=== PATIENT | female | born 1980 | race Caucasian/White ===

== ENCOUNTER 2017-10-21 09:13 | Emergency (ER) | payer OTHER, SELFPAY ==
[2017-10-21 10:00] VITALS: BP 181/77; PULSE 70; RESP 20; TEMP 37; O2SAT 98; BMI 21.4
[2017-10-21 10:17] LABS: UTC Influenza A Antigen Negative (Negative); UTC Influenza B Antigen Negative (Negative)
--- NOTE | 2017-10-21 10:27 | HMH.EDUTC ---
[facility] [place]ression: Tobacco abuse Acute bronchitis Qualifiers: Bronchitis organism: unspecified organism Qualified Code(s): J20.9 - Acute bronchitis, unspecified Disposition: Home, Self-Care Condition on Discharge: Good Instructions: DI for Acute Bronchitis, How to Quit Tobacco Products Additional Instructions: * STOP SMOKING!!!! * start antibiotic today. Be sure to complete entire prescription even if feeling better. As we discussed, without a chest xray I can not rule out that this is not pneumonia or something else. I understand you do not want one and will follow up for new or worsening symptoms. * Monitor Temp. Follow up immediately if fever develops. * humidifier/vaporizer/hot steamy shower * Inhaler every 4-6 hours as needed like we discussed. If unsure how to use it, ask pharmacist to demonstrate how. Should help open airways and improve cough, wheezing, shortness of breath. * Mucinex during the day for your cough and cough suppressant only at night. Be sure to drink lots of water. Insurance may not cover a prescription of mucinex. Might be cheaper to get 400mg tablets and take 2 tablets morning, midday and evening all with lots of water. * Promethazine DM cough syrup will cause drowsiness. Use it only at night. No driving, operating machinery or caring for small children after taking it. * Start steroid today. Helps with inflammation therefore, cough and wheezing. Follow directions on package. Rvwd side effects. Pt reports they have taken them before. Follow up IMMEDIATELY for new or worsening symptoms OR no noticeable improvement over the next 48-72 hours. 911 for difficulty breathing. Prescriptions: Albuterol Sulfate [Albuterol HFA Inhaler] 1 - 2 puffs IH Q4-6H PRN #1 inh PRN Reason: Shortness Of Breath Or Wheezing Azithromycin [Z-Rashard 250mg Tab] 250 mg PO UD DOSE PK #6 tab predniSONE [Prednisone 20mg Tab] 20 mg PO BID #10 tab Promethazine/Dextromethorphan [Promethazine-Dm Syrup] 5 - 10 ml PO HS PRN #120 ml PRN Reason: Cough Referrals: Rose Riggins [Primary Care Provider] - (IMMEDIATELY for new or worsening symptoms OR no noticeable improvement over the next 48-72 hours. 911 for difficulty breathing.) Time of Disposition: 10:53 Medical Decision Making Vital Signs: 10/21/17 10:00 Temperature 98.6 F Temperature Source Temporal Artery Scan Pulse Rate [Brachial] 70 Respiratory Rate 20 Blood Pressure [Right Arm] 181/77 Blood Pressure Mean [Right Arm] 111 Blood Pressure Source [Right Arm] Automatic Cuff Blood Pressure Position [Right Arm] Sitting 02 Sat by Pulse Oximetry 98 Oxygen Delivery Method Room Air - Lab Data Lab results reviewed: Yes: I reviewed the patient's lab results. Lab Results 10/21/17 10:05: Influenza Type A Ag Negative, Influenza Type B Ag Negative - Sae Inquiry Pt receiving controlled substance: No - Reevaluation(s) Time: 10:40 Reevaluation #1: Suggested CXR to r/o pneumonia, pneumo, etc. Pt refusing. Aware of risk if remains undiagnosed. Wants medication only and if no improvement would agree to xray at that time. [facility] [place] Stated complaint: itchy runny eyes nose soa cough Time Seen by Provider: 10/21/17 10:27 Mode of Arrival: Ambulatory Source of Information: Patient Limitations: No Limitations Description of Symptoms (Recalled from Triage Doc. by RN): 2 DAYS OF BODY ACHES, LOW GRADE FEVER, COUGH AND CONGESTION AND FEELS SOA AT TIMES. HEENT Symptoms (Recalled from RN notes): Yes Resp Symptoms (Recalled from RN notes): Yes Skin Symptoms (Recalled from RN notes): No MS Symptoms (Recalled from RN notes): No Functional Status (Recalled from RN notes): NA - History of Present Illness Provider Complaint: c/o cough and SOA. Started last Saturday, 6 days ago. Had been exposed to flu. Started w/ allergy symptoms (watery eyes, sneezing, runny nose). Cough started 2-3 days later. Nonproductive. I can feel stuff in my
--- NOTE | 2017-10-21 10:46 | ED_ITS ---
[facility] [place] Clinical Impression: Tobacco abuse Acute bronchitis Qualifiers: Bronchitis organism: unspecified organism Qualified Code(s): J20.9 - Acute bronchitis, unspecified Disposition: Home, Self-Care Condition on Discharge: Good Instructions: DI for Acute Bronchitis, How to Quit Tobacco Products Additional Instructions: * STOP SMOKING!!!! * start antibiotic today. Be sure to complete entire prescription even if feeling better. As we discussed, without a chest xray I can not rule out that this is not pneumonia or something else. I understand you do not want one and will follow up for new or worsening symptoms. * Monitor Temp. Follow up immediately if fever develops. * humidifier/vaporizer/hot steamy shower * Inhaler every 4-6 hours as needed like we discussed. If unsure how to use it, ask pharmacist to demonstrate how. Should help open airways and improve cough, wheezing, shortness of breath. * Mucinex during the day for your cough and cough suppressant only at night. Be sure to drink lots of water. Insurance may not cover a prescription of mucinex. Might be cheaper to get 400mg tablets and take 2 tablets morning, midday and evening all with lots of water. * Promethazine DM cough syrup will cause drowsiness. Use it only at night. No driving, operating machinery or caring for small children after taking it. * Start steroid today. Helps with inflammation therefore, cough and wheezing. Follow directions on package. Rvwd side effects. Pt reports they have taken them before. Follow up IMMEDIATELY for new or worsening symptoms OR no noticeable improvement over the next 48-72 hours. 911 for difficulty breathing. Prescriptions: Albuterol Sulfate [Albuterol HFA Inhaler] 1 - 2 puffs IH Q4-6H PRN #1 inh PRN Reason: Shortness Of Breath Or Wheezing Azithromycin [Z-Rashard 250mg Tab] 250 mg PO UD DOSE PK #6 tab predniSONE [Prednisone 20mg Tab] 20 mg PO BID #10 tab Promethazine/Dextromethorphan [Promethazine-Dm Syrup] 5 - 10 ml PO HS PRN #120 ml PRN Reason: Cough Referrals: Rose Riggins [Primary Care Provider] - (IMMEDIATELY for new or worsening symptoms OR no noticeable improvement over the next 48-72 hours. 911 for difficulty breathing.) Time of Disposition: 10:53 Medical Decision Making Vital Signs: 10/21/17 10:00 Temperature 98.6 F Temperature Source Temporal Artery Scan Pulse Rate [Brachial] 70 Respiratory Rate 20 Blood Pressure [Right Arm] 181/77 Blood Pressure Mean [Right Arm] 111 Blood Pressure Source [Right Arm] Automatic Cuff Blood Pressure Position [Right Arm] Sitting 02 Sat by Pulse Oximetry 98 Oxygen Delivery Method Room Air - Lab Data Lab results reviewed: Yes: I reviewed the patient's lab results. Lab Results 10/21/17 10:05: Influenza Type A Ag Negative, Influenza Type B Ag Negative - Sae Inquiry Pt receiving controlled substance: No - Reevaluation(s) Time: 10:40 Reevaluation #1: Suggested CXR to r/o pneumonia, pneumo, etc. Pt refusing. Aware of risk if remains undiagnosed. Wants medication only and if no improvement would agree to xray at that time. [facility] [place] General Stated complaint: itchy runny eyes nose soa cough Time Seen by Provider: 10/21/17 10:27 Mode of Arrival: Ambulatory Source of Information: Patient Limitations: No Limitations Description of Symptoms (Recalled from Triage Doc. by RN): 2 DAYS OF BODY ACHES , LOW GRADE FEVER, COUGH AND CONGESTION AND FEELS SOA AT TIMES. [facility]
== END 2017-10-21 10:56 | disposition home or self-care (01) ==
PROVIDERS: Emergency Provider Nurse Practitioner Family; Family Provider Pediatrics; PCP Family Medicine
DX: J20.9 Acute bronchitis, unspecified (principal); F17.210 Nicotine dependence, cigarettes, uncomplicated
CPT/HCPCS: 87804; 99202

== ENCOUNTER → 2018-03-25 12:07 | Outpatient (CLI) | payer OTHER, SELFPAY ==
[2018-03-25 12:44] LABS: Basophils % 0.6 % (0.1-2.0); Eosinophils # 0.2 K/mm3 (0.0-0.4); Eosinophils % 2.6 % (0.1-12.0); Hematocrit 41.1 % (37.0-47.0); Hemoglobin 13.3 g/dL (12.2-16.2); Lymphocytes # 1.9 K/mm3 (0.7-4.5); Lymphocytes % 32.4 K/mm3 (10-50); Mean Corpuscular HGB Conc 32.3 g/dL (31.8-35.4); Mean Corpuscular Hemoglobin 29.8 pg (27.0-31.2); Mean Corpuscular Volume 92.3 fl (81-99); Mean Platelet Volume 7.4 fl (7.4-10.4); Monocytes # 0.3 K/mm3 (0.1-1.0); Monocytes % 4.6 % (1.7-9.3); Neutrophils # 3.5 K/mm3 (1.8-7.8); Neutrophils % 59.7 % (37.0-80.0); Platelet Count 315 K/mm3 (142-424); Red Blood Count 4.45 M/mm3 (4.20-5.40); Red Cell Distribution Width 12.8 % (11.5-17.5); White Blood Count 5.8 K/mm3 (4.8-10.8)
[2018-03-25 13:44] LABS: Alanine Aminotransferase 20 U/L (12-78); Albumin Level 3.9 gm/dL (3.4-5.0); Albumin/Globulin Ratio 1.1 (1.1-1.8); Alkaline Phosphatase 93 U/L (46-116); Aspartate Amino Transferase 17 U/L (15-37); Bilirubin,Total 0.3 mg/dL (0.2-1.0); Blood Urea Nitrogen 12 mg/dL (7-18); Carbon Dioxide 25 mmol/L (21.0-32.0); Chloride 105 mmol/L (98-107); Creatinine,Serum 0.67 mg/dL (0.55-1.02); Estimated Glomerular Filt Rate 99 ml/min (>60); GFR (African American) 119 ML/MIN (>60); Globulin 3.4 gm/dl (1.3-3.2); Glucose 94 mg/dL (74-106); Sodium 141 mmol/L (136-145); Total Protein,Serum 7.3 gm/dL (6.4-8.2)
== END ==
PROVIDERS: Visit Provider Obstetrics & Gynecology
DX: R63.4 Abnormal weight loss (principal)
CPT/HCPCS: 36415; 80053; 85025

== ENCOUNTER → 2018-04-23 09:44 | Outpatient (CLI) | payer OTHER, SELFPAY ==
--- NOTE | 2018-04-23 09:45 | CT_ITS ---
CT abdomen pelvis w con INDICATION: Cervical cancer history. Follow-up. ITS.REASON: personal hx. of cervical ca., weight loss ORDERING PHYSICIAN: Bryn Mensah MD PATIENT AGE: 37 years COMPARISON: 07/27/2016 CT of abdomen. Also January 2016 CT abdomen. PROCEDURE: Oral Contrast: None utilized IV Contrast: 75 cc [id number] TECHNIQUE: Axial images are obtained without contrast. Sagittal and coronal reformatted images are reviewed as well. All CT scans at the facility use one or more dose reduction, viz: automated exposure control; ma/kV adjustment per patient size (including targeted exams where dose is matched to indication; i.e. head); or iterative reconstruction technique. FINDINGS: Lung bases are clear. No active disease Abdomen. Liver. No focal lesions. No biliary ductal dilatation. Portal vein appears normal No abnormal areas of enhancement on portal venous phase imaging. Spleen is unremarkable. Pancreas is generous size throughout. Similar appearance was seen previously and not slightly more evident today. No focal mass or lesion. pancreatic duct appears upper normal as well seen throughout You may consider checking amylase and lipase with maximum length just verify as normal.. No inflammatory changes in adjacent fat about pancreas. Further inspection in this region I, also note some slight hazy appearance in the omentum just inferior to the stomach, more evident than previous study. Axial image 51-55. Requires correlation. May reflect early edematous changes in this region likely involving omentum & & just medial gallbladder. This is a subtle change since previous studies Kidneys. Normal enhancement. No obstruction. No lesions. A few scattered retroperitoneal nodes appears stable small not of concern no significant change. Postsurgical changes and clips are seen along the IVC leading to the right pelvis. Hysterectomy noted. No new adnexal findings or pelvic findings. Moderate/generous stool is seen throughout the colon Appendix is normal. Gallbladder unremarkable. No small bowel dilatation. No mesenteric adenopathy Osseous. No significant new findings. No osseous lesions Degenerative disc changes L4/5 IMPRESSION Hysterectomy for cervical cancer.. . A no significant new pelvic findings. No pelvic nor retroperitoneal adenopathy. Note very subtle hazy appearance inferior to the stomach , likely involving omentum Very subtle feature but is a subtle change since prior studies.. ( Gallbladder is just medial to this area but appears normal & stable on CT.-No evidence of inflammation. Might consider RUQ ultrasound) Pancreas is generous size throughout. Upper normal. Upper normal pancreatic duct is well Suggest checking amylase & lipase with next laboratory given the combination above features
== END ==
PROVIDERS: Family Provider Pediatrics; PCP Pediatrics; Visit Provider Obstetrics & Gynecology
DX: Z85.41 Personal history of malignant neoplasm of cervix uteri (principal); R63.4 Abnormal weight loss
CPT/HCPCS: 74177; Q9967

== ENCOUNTER 2024-12-19 15:17 | Emergency (ER) | payer OTHER, SELFPAY ==
[2024-12-19] VITALS (7 sets, daily range): BP systolic 122–136; BP diastolic 73–90; PULSE 96–123; RESP 16–36; TEMP 36.5–36.6; O2SAT 92–98; BMI 26.6
--- NOTE | 2024-12-19 15:26 | ECG_ITS ---
APPROVED REPORT Exam: Resting ECG HR:120 bpm ECG Measurements Heart Rate 120 AXES NE 108 P 52 QRSd 86 QRS 78 QT 315 T 64 QTc 386 Conclusion SINUS TACHYCARDIA WITH SHORT NE INTERVAL No STEMI Electronically signed by : TATE DUBOIS, 12/20/2024 00:55:11
[2024-12-19 15:34] LABS: Basophils % 0.2 % (0.1-2.0); Eosinophils # 0.1 K/mm3 (0.0-0.4); Eosinophils % 0.7 % (0.1-12.0); Hematocrit 36.7 % (37.0-47.0); Hemoglobin 13.1 g/dL (12.2-16.2); Lymphocytes # 2.1 K/mm3 (0.7-4.5); Lymphocytes % 19.1 % (10-50); Mean Corpuscular HGB Conc 35.7 g/dL (31.8-35.4); Mean Platelet Volume 8.9 fl (7.4-10.4); Monocytes # 0.7 K/mm3 (0.1-1.0); Monocytes % 6.1 % (1.7-9.3); Neutrophils # 7.9 K/mm3 (1.8-7.8); Neutrophils % 73.2 % (37.0-80.0); Platelet Count 488 K/mm3 (142-424); Red Blood Count 4.22 M/mm3 (4.20-5.40); Red Cell Distribution Width 12.1 % (11.5-17.5); White Blood Count 10.7 K/mm3 (4.8-10.8)
[2024-12-19 15:46] LABS: Alanine Aminotransferase 32 U/L (12-78); Albumin Level 4.2 g/dl (3.5-5.0); Albumin/Globulin Ratio 1.1 (1.1-1.8); Alkaline Phosphatase 116 U/L (38-126); Anion Gap 15.4 mEq/L (5-15); Aspartate Amino Transferase 40 U/L (14-36); Bilirubin,Total 0.6 mg/dl (0.2-1.3); Blood Urea Nitrogen 7 mg/dl (7-17); Calcium 9.2 mg/dl (8.4-10.2); Carbon Dioxide 22 mmol/L (22.0-30.0); Chloride 103 mmol/L (98-107); Creatinine Clearance Estimated 153 mL/min (50-200); Estimated Glomerular Filt Rate 108 ml/min (>60); GFR (African American) 131 ML/MIN (>60); Globulin 3.7 g/dL (1.3-3.2); Glucose 114 mg/dl (74-100); Lipase 60 U/L (23-300); Potassium 3.4 mmoL/L (3.5-5.1); Sodium 137 mmol/L (136-145); Total Protein,Serum 7.9 g/dl (6.3-8.2)
[2024-12-19] MEDS: ACETAMINOPHEN 1,000MG/100ML VIAL 1000 MG IV (15:48)
[2024-12-19] MEDS: KETOROLAC 30MG/ML VIAL 15 MG IV (15:48)
[2024-12-19] MEDS: LIDOCAINE 2% 5ML PF VIAL 5 ML IH (15:48)
[2024-12-19] MEDS: LACTATED RINGERS 1000ML 1,000 ML 999 ML IV (15:49)
[2024-12-19 15:51] LABS: D-Dimer 0.78 ug/mL (0.0-0.5)
--- NOTE | 2024-12-19 15:52 | CT_ITS ---
PROCEDURE INFORMATION: Exam: CTA Chest With Contrast Exam date and time: 12/19/2024 4:26 PM Age: 44 years old Clinical indication: Pain; Chest pressure; Additional info: Cp/soa, positive dimer, recent flu TECHNIQUE: Imaging protocol: Computed tomographic angiography of the chest with contrast. Exam focused on the arteries. 3D rendering (Not supervised by radiologist): MIP and/or 3D reconstructed images were created by the technologist. Radiation optimization: All CT scans at this facility use at least one of these dose optimization techniques: automated exposure control; mA and/or kV adjustment per patient size (includes targeted exams where dose is matched to clinical indication); or iterative reconstruction. Contrast material: ISOVUE; Contrast volume: 70 ml; Contrast route: INTRAVENOUS (IV); COMPARISON: ABDPELW CT abdomen pelvis w con 04/23/2018 10:49 AM FINDINGS: Pulmonary arteries: There is heterogeneous contrast attenuation of visualized pulmonary arteries, more pronounced in the subsegmental vessels and likely related to contrast bolus. This limits the detection of pulmonary emboli in the small and peripheral pulmonary arterial branches. As seen, no large or central pulmonary emboli. Aorta: There is no evidence of an aortic aneurysm. There is no evidence of aortic dissection, leak, rupture, or other acute vascular pathology. Thyroid: The thyroid gland is normal. Lungs: There is a pulmonary parenchymal calcification consistent with remote granulomatous organism exposure. There are a few mild reticulonodular/tree-in-bud type opacities in the lung bases bilaterally, slightly greater on the right. Mild tree-in-bud type opacities are also present in the lingula and right middle lobe. A few additional patchy opacities are present in the lingula, right middle lobe and inferior aspect of the anterior right upper lobe. Findings raise the question of endobronchial/ small airways disease. Correlate clinically. Pleural spaces: There are no pleural effusions. There is no evidence of pneumothorax. Heart: There is a small pericardial fluid collection present. The heart is nonenlarged. Lymph nodes: A few calcified mediastinal and hilar lymph nodes indicate prior granulomatous disease. No pathologic adenopathy. Intraperitoneal space: Findings within the upper abdomen are described in the associated CT of the abdomen and pelvis report from the same date and time. Please reference that report for additional information. Bones/joints: The thoracic spine demonstrates mild degenerative changes at multiple levels. There is no evidence of acute fracture. Soft tissues: No significant soft tissue edema. IMPRESSION: 1. Scattered mild reticulonodular/tree-in-bud type opacities in the lung bases bilaterally, slightly greater on the right. Mild tree-in-bud type opacities also present in the lingula and right middle lobe. A few additional patchy opacities are present in the lingula, right middle lobe and inferior aspect of the anterior right upper lobe. Findings raise the question of endobronchial/ small airways disease. Correlate clinically. 2. Heterogeneous contrast attenuation of visualized pulmonary arteries limits the detection of pulmonary emboli in the small and peripheral pulmonary arterial branches. As seen, no large or central pulmonary emboli.
--- NOTE | 2024-12-19 15:52 | CT_ITS ---
PROCEDURE INFORMATION: Exam: CT Abdomen And Pelvis With Contrast Exam date and time: 12/19/2024 4:26 PM Age: 44 years old Clinical indication: Abdominal pain; Additional info: Llq abd pain, diarrhea TECHNIQUE: Imaging protocol: Computed tomography of the abdomen and pelvis with contrast. 3D rendering (Not supervised by radiologist): MIP and/or 3D reconstructed images were created by the technologist. Radiation optimization: All CT scans at this facility use at least one of these dose optimization techniques: automated exposure control; mA and/or kV adjustment per patient size (includes targeted exams where dose is matched to clinical indication); or iterative reconstruction. Contrast material: ISOVUE; Contrast volume: 70 ml; Contrast route: IV; COMPARISON: ABDPELW CT abdomen pelvis w con 04/23/2018 10:49 AM FINDINGS: Pleural spaces: There are no pleural effusions. Heart: There is a small pericardial fluid collection present. The heart is not enlarged. Liver: There is a small region of focal fatty infiltration adjacent to the falciform ligament. There is mild fatty hepatic infiltration. Gallbladder and biliary ducts: A few gallstones are present. No gallbladder wall thickening or pericholecystic fluid. Pancreas: The pancreas is normal. Spleen: The spleen is normal. Adrenal glands: The adrenal glands are normal. Kidneys and ureters: Normal. No hydronephrosis. Stomach and bowel: The stomach is normal. The duodenum is unremarkable. Lack of gastrointestinal contrast limits evaluation of bowel. The colon is normal. There are a few loops of proximal small bowel which show mild apparent mural thickening, possibly an artifact of incomplete distension. Cannot entirely exclude enteritis or other inflammatory/infiltrative processes in the appropriate clinical setting. Correlate clinically. Remaining unopacified distal loops of small bowel are within range of normal. Appendix: A normal appendix is identified. Intraperitoneal space: No evidence of intraperitoneal free air. No free fluid. Retroperitoneal space: Surgical clips are seen along the right retroperitoneum. Vasculature: The aorta and iliac arteries demonstrate moderate atherosclerotic calcification. There are a few benign phleboliths in the pelvis. There is no evidence of an aortic aneurysm. There is no evidence of aortic dissection, leak, rupture, or other acute vascular pathology. Lymph nodes: No enlarged lymph nodes. Urinary bladder: The bladder is incompletely distended. As seen, it appears within range of normal. Reproductive: The uterus is either atrophic or absent. No adnexal masses. No adnexal cysts or masses are identified. Bones/joints: There are moderate degenerative changes of the hip joints. There are mild degenerative changes of the hip joints. There are mild degenerative changes of the symphyseal pubic joint. The thoracolumbar spine demonstrates mild degenerative changes at multiple levels. Postoperative changes status post ORIF and intradiscal cage at the L5-S1 level is stable.There is no evidence of acute fracture. Soft tissues: There is a tiny fat-containing umbilical hernia. There are several supraumbilical midline fat containing ventral hernias. There most caudal adjacent to the umbilicus is a supraumbilical fat containing hernia measuring 3.8 x 2.8 cm with hernia defect measuring approximately 19 mm. There are 3 additional small adjacent supraumbilical fat containing midline ventral hernias. The most cephalad measures approximately 2.4 x 1.6 cm with a defect measuring approximately 10 mm. The next caudal fat containing midline hernia measures 2.9 x 1.5 cm with a 4 mm defect . The next caudal hernia is a tiny fat containing hernia. These are all new when compared with 04/23/2018. There is mild asymmetric fat density just above the left inguinal canal best seen on series 5, images 40-45 without discrete bulge. Findings raise the question of left femoral hernia or potentially lipoma. This reflects a change since prior exam of 04/23/2018.. Correlate clinically. Other findings: Findings within the lower chest are described in the associated CT of the chest report from the same date and time. Please reference that report for additional information. IMPRESSION: 1. A few loops of proximal small bowel show mild apparent mural thickening, possibly an artifact of incomplete distension versus enteritis or other inflammatory/infiltrative processes. Correlate clinically. 2. Mild asymmetric fat density just above the left inguinal canal without discrete bulge. Findings raise the question of small fat containing left femoral hernia or potentially lipoma. Correlate clinically. This reflects a change since prior exam of 04/23/2018. Correlate clinically. 3. Several small fat containing midline ventral hernias as detailed above, new since 04/23/2018. 4. Cholelithiasis.
[2024-12-19 16:03] LABS: Troponin I < 0.01 ng/ml (0.00-0.034)
--- NOTE | 2024-12-19 16:22 | PC.NURSE ---
PT TO CT
--- NOTE | 2024-12-19 16:22 | HMH.EDGENADL ---
Discharge Plan Disposition Patient Disposition: Home, Self-Care Condition: Good Prescriptions Prescriptions: New ondansetron 4 mg tablet,disintegrating 4 mg PO Q8H PRN (Reason: nausea and vomiting) 4 Days Qty: 12 0RF naproxen 500 mg tablet 500 mg PO BID Qty: 20 0RF amoxicillin-pot clavulanate 875-125 mg tablet 1 tab PO BID Qty: 20 0RF azithromycin 500 mg tablet 500 mg PO DAILY 2 Days Qty: 2 0RF Rx Instructions: start on day 2 of therapy No Action trazodone 50 mg tablet 50 mg PO HS Patient Comments: TAKE 1 TABLET BY MOUTH NIGHTLY sumatriptan succinate 100 mg tablet 100 mg PO DIRECTED Patient Comments: TAKE 1 TABLET BY MOUTH ONCE NEEDED FOR MIGRAINE FOR UP TO 1 DOSE. Rx Instructions: TAKE 1 TABLET BY MOUTH ONCE NEEDED FOR MIGRAINE FOR UP TO 1 DOSE. benzonatate 100 mg capsule 100 mg PO TIDP PRN (Reason: Cough) ondansetron 4 mg tablet,disintegrating 4 mg translingual Q8HP PRN (Reason: n/v) duloxetine 30 mg capsule,delayed release(DR/EC) 30 mg PO BID Patient Comments: TAKE 1 CAPSULE BY MOUTH 2 TIMES DAILY FOR 180 DAYS. Referrals Follow up/Referrals: Suraj Jiménez [Primary Care Provider] - See instructions David Skinner MD [Staff Physician] - See instructions Dany Yang MD [Staff Physician] - See instructions Activity Restrictions/Add. Instructions Additional Instructions/Restrictions: You were evaluated in the emergency department today. You have fat-containing hernias but there is no evidence of bowel obstruction. For these hernias, you may follow-up outpatient with general surgery for evaluation. He also had findings concerning for pretty significant bronchitis on imaging, so we are prescribing you antibiotics with concern that you may be developing a bacterial infection after the flu. I am prescribing Augmentin and azithromycin. 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 I also prescribed naproxen which is an anti-inflammatory. Take this twice daily. You may also take Tylenol every 4-6 hours as needed for pain/fever. Follow-up closely with primary care. Return to the emergency department for new or worsening symptoms. Clinical Impressions Clinical Impression: Bronchitis, Abdominal pain, Diarrhea, Hernia, Enteritis, Gallstones Stand Alone Forms Stand Alone Forms: Work/School Release Instructions Patient Instructions: DI for Acute Bronchitis, DI for Diarrhea and Traveler's Diarrhea -- Adult, DI for Acute Abdominal Pain Print Language Print Language: Tanzanian Discharge ED Provider: Melinda Casas General Adult HPI General Chief complaint: Abdominal Pain Stated complaint: cough/poss hernia Time Seen by Provider: 12/19/24 15:21 Mode of Arrival: EMS Source of Information: Patient, EMS and Medical Record Description of Symptoms (Recalled from ER Triage Doc. by RN): Pt c/oLLQ ABD pain, swelling, and tenderness that began after a violent coughing episodes. States 3-4 days ago she coughed so hard I felt something pop inside . She denies any known hx of hernias but feel this is what is going on. 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 Denies any vomiting. She does states splinting the llq helps the pain mildly. History of Present Illness HPI narrative: This patient is a 44-year-old female with a history of tobacco abuse, prior history of uterine cancer status post hysterectomy and chemo/radiation in 2012 presenting to the emergency department for evaluation with concern for left lower quadrant abdominal pain. She arrives by EMS who notes she was stable en route. Patient states that she was diagnosed with the flu last week and has had significant cough since then. She states that 3 to 4 days ago, she coughed so hard she felt something pop inside her abdomen. She states that she feels like she might have a hernia. She notes her pain is 7 out of 10 at rest and when she coughs or moves it is 10 out of 10. No nausea, vomiting, constipation. She does note diarrhea this nonbloody nonmelanotic. She states that holding her left lower quadrant when she coughs or breathes helps with the pain. She also notes chest pain and shortness of breath related to the cough, feeling like she has significant pain anytime she coughs and like she cannot catch her breath. Related Data Home Medications ?Medication ?Instructions ?Recorded ?Confirmed benzonatate 100 mg capsule 100 mg PO TIDP PRN Cough 12/19/24 12/19/24 duloxetine 30 mg capsule,delayed 30 mg PO BID 12/19/24 12/19/24 release ondansetron 4 mg disintegrating 4 mg translingual Q8HP PRN n/v 12/19/24 12/19/24 tablet sumatriptan succinate 100 mg tablet 100 mg PO DIRECTED 12/19/24 12/19/24 trazodone 50 mg tablet 50 mg PO HS 12/19/24 12/19/24 Previous Rx's ?Medication ?Instructions ?Recorded amoxicillin 875 mg-potassium 1 tab PO BID #20 tabs 12/19/24 clavulanate 125 mg tablet azithromycin 500 mg tablet 500 mg PO DAILY 2 days #2 tabs 12/19/24 naproxen 500 mg tablet 500 mg PO BID #20 tabs 12/19/24 ondansetron 4 mg disintegrating 4 mg PO Q8H PRN nausea and 12/19/24 tablet vomiting 4 days #12 tabs Allergies Allergy/AdvReac Type Severity Reaction Status Date / Time No Known Allergies Allergy Verified 05/06/18 14:28 [facility] Disclaimer: The information contained in this section may have been updated after the patient was seen, as this information can be updated by other users. Social History Smoking Status: Current some day smoker tobacco type: cigarettes alcohol intake: never substance use type: denies use current occupational status: employed Travel in the last 8 weeks: None Other Medical History Have you received the Flu Vaccine for this season: No Have you received the Pneumonia Vaccine: No ROS Obtained: Yes All systems reviewed & no additional complaints except as documented Physical Exam General General appearance: alert and in no apparent distress Head Head exam: atraumatic and normocephalic Eye Eye exam: Present normal appearance, PERRL and EOMI ENT ENT exam: Present normal exam, normal oropharynx, mucous membranes moist and normal external ear exam Neck Neck exam: Present normal inspection, full ROM and trachea midline; Absent tenderness Chest Chest inspection: Present normal inspection and symmetric chest wall rise; Absent tenderness Respiratory Respiratory exam: Present normal lung sounds bilaterally; Absent respiratory distress, wheezes, stridor or accessory muscle use Cardiovascular Cardiovascular exam: Present normal rhythm and tachycardia Abdominal Exam Abdominal exam: Present soft and tenderness (Left lower quadrant); Absent distention, guarding, rebound or rigidity Extremities Exam Extremities exam: Present normal inspection, full ROM and normal capillary refill; Absent tenderness or edema Back Exam Back exam: Present normal inspection and full ROM; Absent tenderness Neurological Exam Neurological exam: Present alert, oriented X3, CN II-XII intact and normal gait; Absent motor sensory deficit Psychiatric Psychiatric exam: Present normal affect and normal mood Skin Skin exam: Present warm and dry Medical Decision Making Medical Records Medical records reviewed: Yes I reviewed the patient's medical records. Screening: Per USPSTF and CDC recommendations, given the prevalence of disease in our region, it is our hospital?s policy to screen for HIV and viral Hepatitis for all patients aged 18 and over and those with ongoing risk factors. Sae Inquiry Pt receiving controlled substance: No Vital Signs: 12/19/24 15:22 12/19/24 16:00 12/19/24 17:04 Temperature 97.7 F Temperature Source Oral Pulse Rate 104 H 105 H Pulse Rate [Right] 123 H Respiratory Rate 24 16 20 Blood Pressure 122/75 127/73 Blood Pressure [Right Arm] 136/75 Blood Pressure Mean 90 Blood Pressure Mean [Right Arm] 95 Blood Pressure Source [Right Arm] Automatic Cuff 02 Sat by Pulse Oximetry 92 L 94 L 97 Oxygen Delivery Method Room Air 12/19/24 17:30 12/19/24 18:00 12/19/24 18:30 Temperature Temperature Source Pulse Rate 96 H 98 H 109 H Pulse Rate [Right] Respiratory Rate 20 25 H 36 H Blood Pressure 129/76 128/83 129/90 Blood Pressure [Right Arm] Blood Pressure Mean 88 Blood Pressure Mean [Right Arm] Blood Pressure Source [Right Arm] 02 Sat by Pulse Oximetry 95 95 95 Oxygen Delivery Method Room Air Room Air 12/19/24 19:20 Temperature 97.9 F Temperature Source Pulse Rate 98 H Pulse Rate [Right] Respiratory Rate 20 Blood Pressure 132/81 Blood Pressure [Right Arm] Blood Pressure Mean Blood Pressure Mean [Right Arm] Blood Pressure Source [Right Arm] 02 Sat by Pulse Oximetry Oxygen Delivery Method Room Air Lab Data Lab results reviewed: Yes I reviewed the patient's lab results. Lab Results 12/19/24 15:20: WBC 10.7, RBC 4.22, Hgb 13.1, Hct 36.7 L, MCV 87.0, MCH 31.0, MCHC 35.7 H, RDW 12.1, Plt Count 488 H, MPV 8.9, Neut % (Auto) 73.2, Lymph % (Auto) 19.1, [place] % (Auto) 6.1, Eos % (Auto) 0.7, Baso % (Auto) 0.2, Neut # (Auto) 7.9 H, Lymph # (Auto) 2.1, [place] # (Auto) 0.7, Eos # (Auto) 0.1, Baso # (Auto) 0.0, Sodium 137, Potassium 3.4 L, Chloride 103, Carbon Dioxide 22, Anion Gap 15.4 H, BUN 7, Creatinine 0.60, Estimated Creat Clear 153, Estimated GFR 108, Est GFR ( Amer) 131, Glucose 114 H, Lactate 2.0, Calcium 9.2, Total Bilirubin 0.6, AST 40 H, ALT 32, Alkaline Phosphatase 116, Troponin I < 0.01, Total Protein 7.9, Albumin 4.2, Globulin 3.7 H, Albumin/Globulin Ratio 1.1, Lipase 60, HCV Ab TOÑA w/Rflx PCR Qn Negative, HIV Ag/Ab Combo Qual Negative 12/19/24 15:22: Urine Color Melinda, Urine Appearance Clear, Urine pH 7.0, Ur Specific [place] 1.010, Urine Protein Negative, Urine Glucose (UA) Negative, Urine Ketones Negative, Urine Blood Negative, Urine Nitrate Negative, Urine Bilirubin Trace, Urine Urobilinogen 4.0, Ur Leukocyte Esterase Negative, Urine RBC None, Urine WBC Occasional, Ur Squamous Epith Cells Occasional, Urine Bacteria Trace 12/19/24 15:25: D-Dimer 0.78 H 12/19/24 15:20 12/19/24 15:20 Orders (Tests/Meds): ED MEDICATIONS Discontinued Medications Generic Name Dose Route Start Last Admin Trade Name Jemma PRN Reason Stop Dose Admin Acetaminophen 1,000 mg 12/19/24 15:29 12/19/24 15:48 Acetaminophen 1,000mg/100ml Vial IV 12/19/24 15:30 1,000 mg ONCE ONE Administration Amoxicillin/Clavulanate Potassium 1 each 12/19/24 18:21 12/19/24 18:29 Amoxicillin/Clavulanate Potassium 875/125mg Tablet PO 12/19/24 18:22 1 each ONCE ONE Administration Azithromycin 500 mg 12/19/24 18:21 12/19/24 18:28 Azithromycin 250mg Tablet PO 12/19/24 18:22 500 mg ONCE ONE Administration Lactated Ringer's 1,000 mls @ 999 mls/hr 12/19/24 15:29 12/19/24 15:49 Lactated Ringer's 1000 Ml Bag IV 12/19/24 16:29 999 mls/hr .Q1H1M ONE Administration Iopamidol 70 ml 12/19/24 16:26 12/19/24 16:29 Iopamidol-370 (76%);100ml Bottle IV 12/19/24 16:27 70 ml ONCE ONE Administration Ketorolac Tromethamine 15 mg 12/19/24 15:29 12/19/24 15:48 Ketorolac 30mg/Ml Vial IV 12/19/24 15:30 15 mg ONCE ONE Administration Lidocaine HCl 5 ml 12/19/24 15:30 12/19/24 15:48 Lidocaine 2% 5ml Pf Vial IH 12/19/24 15:31 5 ml ONCE ONE Administration Potassium Chloride 40 meq 12/19/24 18:21 12/19/24 18:28 Potassium Chloride 20meq Tab PO 12/19/24 18:22 40 meq ONCE ONE Administration Sodium Chloride 10 ml 12/19/24 16:26 12/19/24 16:29 Sodium Chloride 0.9% 10ml Syr (Rad Only) IV 12/19/24 16:27 10 ml ONCE ONE Administration Sodium Chloride 50 ml 12/19/24 16:26 12/19/24 16:29 0.9 % Sodium Chloride 50 Ml Vial IV 12/19/24 16:27 50 ml ONCE ONE Administration ORDERS Category Date Time Status CT abdomen pelvis w con Stat Cat Scan 12/19/24 15:[address] angio chest PE protocol Stat Cat Scan 12/19/24 15:52 Completed Complete Blood Count Auto Diff Stat Lab 12/19/24 15:20 Completed Comprehensive Metabolic Panel Stat Lab 12/19/24 15:20 Completed D-Dimer Stat Lab 12/19/24 15:25 Completed HIV Combo Stat Lab 12/19/24 15:20 Completed Hepatitis C Ab Qual. W/ RFX Stat Lab 12/19/24 15:20 Completed Lactic Acid Stat Lab 12/19/24 15:20 Completed Lipase Stat Lab 12/19/24 15:20 Completed Trop I [Troponin I] Stat Lab 12/19/24 15:20 Completed UA [Urinalysis and Microscopic] Stat Lab 12/19/24 15:22 Completed ECG Data Tracing #1: I reviewed this ECG and interpreted as documented below: Sinus tachycardia with a ventricular to [address] changes concerning for STEMI. Normal intervals ECG initial impression date: 12/19/24 ECG initial impression time: 15:29 Medical Decision Narrative: In summary, this patient is a 44-year-old presenting to the Emergency Department for evaluation of left lower quadrant abdominal pain, diarrhea, chest pain, and shortness of breath in the setting of recent flu. Differential diagnoses considered include but are not limited to hernia, diverticulitis, colitis, gastroenteritis, pneumonia, PE, pleurisy, ACS, viral syndrome. Ruling out the most morbid conditions drove assessment. It should be noted patient's history includes tobacco dependence which is not at goal therapy. This complicates all aspects of care by increasing patient's risk for morbidity. On exam, the patient is sitting upright in no acute distress. She has no increased work of breathing. Cardiopulmonary exam is reassuring with no adventitious lung sounds noted. She does have a harsh cough. She is tachycardic but otherwise vitals are normal on cardiac telemetry. She has left lower quadrant tenderness without rebound or guarding. No appreciable hernia noted on exam. Workup included CBC, CMP, lipase, lactic acid, troponin. Cannot use PERC criteria to exclude PE given the patient's elevated heart rate in the 100s, so I elected to obtain D-dimer. Labs resulted demonstrating reassuring CBC with no significant leukocytosis or anemia. Chemistry is reassuring with only very mild hypokalemia, mildly elevated anion gap in the setting of diarrhea. She was given a bolus of IV fluids. D-dimer is elevated, so I decided to obtain CTA PE protocol as well as CT abdomen pelvis with IV contrast given the patient's lower abdominal pain. Patient was given a lidocaine neb for her irritating cough as well as IV Toradol and acetaminophen for the pain. EKG obtained is reassuring. On reassessment, patient is resting comfortably with reassuring vitals on cardiac telemetry. Her heart rate is significantly improved after IV fluid resuscitation and is now less than 100. I independently interpreted CT scans prior to the radiologist read and noted opacities in the lingula and right middle lobe concerning for developing pneumonia in the setting of recent flu, I do not see any large PE though contrast timing is suboptimal. I see some fat-containing hernias but no obstructive process. Please see their read for final interpretation. Radiology notes concerns for enteritis and lipoma versus fatty hernia in the left inguinal region. They also note findings concerning for enteritis. She has gallstones without secondary findings concerning for cholecystitis. On reassessment, the patient is feeling a lot better. She was able to tolerate oral potassium repletion and oral intake. Given concerns for developing pneumonia, elected to treat with Augmentin and azithromycin. Given her nausea and vomiting in setting of enteritis, will elect to treat with Zofran at home. I also prescribed her naproxen to treat her enteritis and abdominal pain. Ultimately at this time, I feel that she is appropriate for discharge with prescriptions as above and instructions for close follow-up with primary care. Strict return precautions were given Critical Care Critical Care Time Critical Care Time: No
[2024-12-19] MEDS: SODIUM CHLORIDE 0.9% 10ML SYR (RAD ONLY) 10 ML IV (16:29)
[2024-12-19] MEDS: 0.9 % SODIUM CHLORIDE 50 ML VIAL IV (16:29)
[2024-12-19] MEDS: IOPAMIDOL-370 (76%);100ML BOTTLE 70 ML IV (16:29)
--- NOTE | 2024-12-19 16:32 | PC.NURSE ---
PT RETURNED FROM RAD VIA WC
[2024-12-19 16:56] LABS: HIV Combo NEGATIVE (Negative)
[2024-12-19 17:04] LABS: Hepatitis C Ab Qual. W/ RFX NEGATIVE (Negative)
[2024-12-19 17:10] LABS: Microscopic, Urine URINE MICROSCOPIC (MICROSCOPIC)
[2024-12-19 17:11] LABS: Appearance,Urine CLEAR (Clear); Blood, Urine Negative (Negative); Glucose,Urine (UA) Negative (Negative); Ketones,Urine Negative (Negative); Leukocyte Esterase,Urine Negative (Negative); Nitrate,Urine Negative (Negative); Protein,Urine Negative (Negative)
[2024-12-19 17:12] LABS: Bilirubin,Urine Trace (Negative)
[2024-12-19 17:13] LABS: Color,Urine Amber (Yellow)
--- NOTE | 2024-12-19 17:20 | PC.NURSE ---
called radiology to check on ct read. apprentice instrument technician states the images are assigned but not reading yet. They will contact [facility]
[2024-12-19 17:46] LABS: Bacteria,Urine Trace /lpf; Squamous Epithelial Cell,Urine Occasional #/hpf (0-5); WBC,Urine Occasional #/hpf (0-3)
--- NOTE | 2024-12-19 17:46 | PC.NURSE ---
Dr Casas at bedside
[2024-12-19] MEDS: AZITHROMYCIN 250MG TABLET 500 MG PO (18:28)
[2024-12-19] MEDS: POTASSIUM CHLORIDE 20MEQ TAB 40 MEQ PO (18:28)
[2024-12-19] MEDS: AMOXICILLIN/CLAVULANATE POTASSIUM 875/125MG TABLET 1 EACH PO (18:29)
== END 2024-12-19 19:20 | disposition home or self-care (01) ==
PROVIDERS: Emergency Provider Emergency Medicine; PCP Pediatrics
DX: K43.6 Other and unspecified ventral hernia with obstruction, without gangrene (principal); J40 Bronchitis, not specified as acute or chronic; K80.20 Calculus of gallbladder without cholecystitis without obstruction; K52.9 Noninfective gastroenteritis and colitis, unspecified; E87.6 Hypokalemia; R00.0 Tachycardia, unspecified; R05.8 Other specified cough; R11.2 Nausea with vomiting, unspecified; R07.9 Chest pain, unspecified; R19.00 Intra-abdominal and pelvic swelling, mass and lump, unspecified site; R06.02 Shortness of breath; R10.32 Left lower quadrant pain; F17.210 Nicotine dependence, cigarettes, uncomplicated; Z90.79 Acquired absence of other genital organ(s); Z85.42 Personal history of malignant neoplasm of other parts of uterus; Z92.21 Personal history of antineoplastic chemotherapy; Z92.3 Personal history of irradiation
CPT/HCPCS: 71275; 74177; 80053; 81001; 83605; 83690; 84484; 85025; 85378; 86803; 87389; 93005; 96360; 96361; 96374; 96375; 99285; J0131; J1885; J7120; Q9967